=== PATIENT | male | born 1970 | race Caucasian/White ===

== ENCOUNTER 2018-07-15 19:46 | Emergency (ER) | payer BC ==
[~2018-07-15] VITALS: Ht 175.3 cm; Wt 65.8 kg
[2018-07-15] MEDS ORDERED: PROPOFOL 200 MG/20 ML BOTTLE IV ONE (20:00)
[2018-07-15] MEDS ORDERED: ONDANSETRON 4 MG/2 ML VIAL IV ONE (20:00)
[2018-07-15] MEDS ORDERED: HYDROMORPHONE 1 MG/1 ML DISP.SYRIN IV ONE (20:00)
[2018-07-15] MEDS ORDERED: IV NORMAL SALINE 1000 ML BAG IV ONE (20:00)
[2018-07-15] MEDS ORDERED: ONDANSETRON 4 MG/2 ML VIAL ONE (20:06)
[2018-07-15] MEDS ORDERED: PROPOFOL 200 MG/20 ML BOTTLE ONE (20:06)
[2018-07-15] MEDS ORDERED: HYDROMORPHONE 2 MG/1 ML DISP.SYRIN ONE (20:06)
--- NOTE | 2018-07-15 20:10 | NUR ---
MODERATE SEDATION: ERMD ordered moderate sedation for closed reduction of L Shoulder. Patient A/O x3, ambulatory, able to follow directions, consent for procedure signed, NSR (periods of bradycardia), monitor in place, respiratory at bedside. Please refer to paper moderate sedation record.
--- NOTE | 2018-07-15 20:13 | NUR ---
TIME OUT for procedure.
--- NOTE | 2018-07-15 20:22 | NUR ---
MODERATE SEDATION: Completed closed reduction of L shoulder with ERMD, procedure documented on paper moderate sedation record. Patient awake, A/O x3, able to follow commands, vital signs WNL, no acute distress noted.
--- NOTE | 2018-07-15 21:36 | NUR ---
Patient discharged to home in stable conditon. Written and verbal after care instructions given. Patient verbalizes understanding of instructions.
[2018-07-15 21:38] VITALS: BP 114/49
== END 2018-07-15 21:39 | disposition home or self-care (01) ==
LOC: ER 19:47
DX: S43.015A Anterior dislocation of left humerus, initial encounter (principal); X58.XXXA Exposure to other specified factors, initial encounter; Y93.89 Activity, other specified; Y92.89 Other specified places as the place of occurrence of the external cause; Y99.8 Other external cause status
CPT/HCPCS: 23650; 73020; 73030; 96374; 96375; 99285; J1170; J2405; A4663; J3490; J7030

== ENCOUNTER 2025-07-22 18:32 | Emergency (ER) | payer BC ==
[~2025-07-22] VITALS: Ht 177.8 cm; Wt 65.8 kg
[2025-07-22] MEDS ORDERED: ONDANSETRON 4 MG/2 ML VIAL ONE (19:07)
[2025-07-22] MEDS ORDERED: HYDROMORPHONE 1 MG/1 ML DISP.SYRIN ONE (19:07)
[2025-07-22] MEDS: ONDANSETRON 4 MG/2 ML VIAL IV ONE (19:32)
[2025-07-22] MEDS: HYDROMORPHONE 1 MG/1 ML DISP.SYRIN IV ONE (19:32)
[2025-07-22 19:50] LABS: PLATELET COUNT (AUTO) 222 K/uL (152-348); RED BLOOD CELL COUNT(AUTO) 4.73 MIL/uL (4.06-5.63); RED CELL DISTRIBUTION WIDTH 13.5 % (12.1-16.2); WHITE BLOOD COUNT (AUTO) 6.6 K/uL (3.6-10.2)
[2025-07-22 19:57] LABS: CREATININE 1.1 mg/dL (0.6-1.3); SODIUM SERUM 142.0 mmol/L (136-145); UREA NITROGEN, BLOOD 21.0 mg/dL (7-18)
[2025-07-22 20:02] LABS: ASPARTATE AMINOTRANSFERASE 7.0 U/L (15-37); TOTAL PROTEIN, SERUM 7.3 g/dL (6.4-8.2)
[2025-07-22] MEDS ORDERED: ETOMIDATE 20 MG/10 ML VIAL ONE ×2 (20:07→20:21)
[2025-07-22] MEDS: ETOMIDATE 20 MG/10 ML VIAL IV ONE ×2 (20:08→20:38)
[2025-07-22] MEDS ORDERED: HYDR-4209 PO (20:45)
[2025-07-22] MEDS ORDERED: ONDA4TAB11 PO (20:45)
[2025-07-22] MEDS ORDERED: POTASSIUM CHLORIDE 20 MEQ TAB.PRT.SR ONE (20:57)
[2025-07-22] MEDS: POTASSIUM CHLORIDE 20 MEQ TAB.PRT.SR PO ONE (20:58)
[2025-07-22 21:00] VITALS: BP 129/92
[2025-07-23 00:18] VITALS: BP 121/69; TEMP 98; O2SAT 98
== END 2025-07-22 22:00 | disposition home or self-care (01) ==
LOC: ER 18:32
DX: S43.014A Anterior dislocation of right humerus, initial encounter (principal); E11.9 Type 2 diabetes mellitus without complications; Z88.7 Allergy status to serum and vaccine; W01.0XXA Fall on same level from slipping, tripping and stumbling without subsequent striking against object, initial encounter; Y93.89 Activity, other specified; Y92.89 Other specified places as the place of occurrence of the external cause; Y99.8 Other external cause status
CPT/HCPCS: 99285; 23650; 96374; 71045; 96375; 80076; 80048; 85025; 85730; 36415; 73030 ×2; 99152; J3490 ×2; J2405; J1171; J7040; A4606; A4663; G0500